=== PATIENT | male | born 2000 | race American Indian/Alaskan Native ===

== ENCOUNTER 2020-12-20 05:18 | Emergency (ER) | payer SELFPAY ==
--- NOTE | 2020-12-20 06:24 | Emergency Department Report ---
ED Allergic Reaction HPI - General Stated complaint: ALLERGIC REACTION Time Seen by Provider: 12/20/20 06:20 - History of Present Illness Initial Comments: 20-year-old [place] male was at the gym using cleaning products to clean down the equipment states that some got onto his skin a couple days ago and now he is been experiencing a pruritic rash to his arms and areas of contact. Reports no chest pain, no wheezing, no shortness of breath, no lip swelling but the rash has been coming and going. Has not tried any palliative factors reports no provocative factors. There is no diarrhea no sore throat, no voice change, drooling, no headache, no blurred vision, - Related Data Previous Rx's Medication Instructions Recorded Last Taken Type Famotidine [Pepcid] 40 mg PO DAILY #14 tablet 12/20/20 Unknown Rx hydrOXYzine HCL [Atarax] 25 mg PO Q6HR PRN #20 tablet 12/20/20 Unknown Rx predniSONE [Deltasone] 50 mg PO QDAY #5 tab 12/20/20 Unknown Rx Allergies Allergy/AdvReac Type Severity Reaction Status Date / Time No Known Allergies Allergy Unverified 12/20/20 06:18 ED Review of Systems ROS: Stated complaint: ALLERGIC REACTION Other details as noted in HPI Comment: All other systems reviewed and negative ED Past Medical Hx - Medications Home Medications: Home Medications Medication Instructions Recorded Confirmed Last Taken Type Famotidine [Pepcid] 40 mg PO DAILY #14 tablet 12/20/20 Unknown Rx hydrOXYzine HCL [Atarax] 25 mg PO Q6HR PRN #20 tablet 12/20/20 Unknown Rx predniSONE [Deltasone] 50 mg PO QDAY #5 tab 12/20/20 Unknown Rx ED Physical Exam - General General appearance: alert, in no apparent distress - Head Head exam: Present: atraumatic, normocephalic - Eye Eye exam: Present: normal appearance - ENT ENT exam: Present: mucous membranes moist - Neck Neck exam: Present: normal inspection - Respiratory Respiratory exam: Present: normal lung sounds bilaterally. Absent: respiratory distress - Cardiovascular Cardiovascular Exam: Present: regular rate, normal rhythm. Absent: systolic murmur, diastolic murmur, rubs, gallop - GI/Abdominal GI/Abdominal exam: Present: soft, normal bowel sounds - Rectal Rectal exam: Present: deferred - Extremities Exam Extremities exam: Present: normal inspection, full ROM - Back Exam Back exam: Present: normal inspection - Neurological Exam Neurological exam: Present: alert, oriented X3 - Psychiatric Psychiatric exam: Present: normal affect, normal mood - Skin Skin exam: Present: warm, dry, erythema, urticaria (Appear to be resolving but outlines are present not raised.), other (No current dermatographism). Absent: rash ED Medical Decision Making - Medical Decision Making This patient presents with symptoms consistent with acute hypersensitivity reaction, likely acute allergic reaction. Presentation not consistent with acute anaphylaxis (lack of pulmonary, dermatologic, cardiovascular or GI symptoms, lack of hypotension or exposure to known allergen), angioedema, serum sickness(no recent drug exposure, lack of fevers, arthralgias), ingestion of preformed toxin. No evidence of airway compromise or shock at this time. Plan to treat for allergic reaction with H2/H1 blockers, steroids. No indication for epinephrine at this time. Plan radiation treatment with steroids and antihistamines. He is maintaining a stable breathing pattern and the nonprogression rash during his ED visit here today condition appears to be stable if not improved Critical care attestation.: If time is entered above; I have spent that time in minutes in the direct care of this critically ill patient, excluding procedure time. ED Disposition Clinical Impression: Allergic reaction, Hives Disposition: [id number] TO HOME OR SELFCARE Is pt being admited?: No Does the pt Need Aspirin: No Condition: Stable Instructions: Cough, Adult, [id number], Allergies, Adult, [id number], Hives, [id number] Prescriptions: hydrOXYzine HCL [Atarax] 25 mg PO Q6HR PRN #20 tablet PRN Reason: Itching predniSONE [Deltasone] 50 mg PO QDAY #5 tab Famotidine [Pepcid] 40 mg PO DAILY #14 tablet Referrals: PRIMARY CARE,MD [Primary Care Provider] - 3-5 Days
[2020-12-20] MEDS ORDERED: predniSONE 50 MG TAB PO ONE (06:40)
[2020-12-20] MEDS ORDERED: diphenhydrAMINE 25 MG CAP PO ONE (06:40)
[2020-12-20 06:47] VITALS: BP 117/80
== END 2020-12-20 06:58 | disposition home or self-care (01) ==
LOC: ED 05:18
DX: T88.8XXA Other specified complications of surgical and medical care, not elsewhere classified, initial encounter (principal); L50.9 Urticaria, unspecified; Z79.899 Other long term (current) drug therapy; X58.XXXA Exposure to other specified factors, initial encounter
CPT/HCPCS: 99282; J7512